=== PATIENT | male | born 1935 | race Caucasian/White ===

== ENCOUNTER 2016-11-16 06:48 | Day surgery (SDC) | payer OTHER ==
[2016-11-16] VITALS (9 sets, daily range): BP systolic 119–180; BP diastolic 46–83; PULSE 60–67; TEMP 36.1–36.6; O2SAT 97–99; Ht 175.3 cm; Wt 101.2 kg
[~2016-11-16] VITALS: Ht 175.3 cm; Wt 101.2 kg
--- NOTE | 2016-11-16 05:57 | History and Physical ---
History & Physical Date of Service Nov 16, 2016. History & Physical d the pleasure of seeing Mr. Weston in the office for consultation today regarding his right lateral lower leg wounds in regards to his peripheral arterial disease. The patient states that he has had longstanding peripheral arterial disease and underwent a right leg bypass performed back in 2009 or so. The patient states that approximately a month or so ago, he noticed that his right ankle brace appeared to be rubbing at his skin. He states that when he got a better look at it he realized that there was an ulceration there and he sought medical attention for it. He admits some chronic pain and numbness due to diabetic neuropathy in his bilateral feet and ankles, may also have some chronic edema of his lower legs, worse on the right than the left since his surgery back in 2010. He states that he has a history of having had stents placed in his right leg prior to him having to undergo bypass in that leg. He states that he is going to the wound care center locally and that they have ordered some x-rays of his ankle to look for bone infection and they did start him on an antibiotic at his last visit there. He states that they have not informed him of whether the wound appears to be healing or not. He has not had bypass evaluated for 5-6 years. He states that he is unable to walk long distances and so does not claudicate, but his inability to walk it is related shortness of breath as well as his chronic foot discomfort and numbness. He does use a cane for ambulation. ,He also reports that he has a history of congestive heart failure and has some shortness of breath as well as swelling in his lower extremity, more so on the right than on the left. 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 The patient reports also, he has been having some rest pain symptoms and pain waking him up in the middle of night, improves with him dangling his foot pad aside of the bed. He also takes Tylenol and oxycodone for the pain. He denies other complaints at this time including headaches, fevers, chills, dizziness, chest pain, shortness of breath, abdominal pain, nausea, vomiting, diarrhea, constipation, dysuria, hematuria, rest pain, claudication or other complaints. He did not have any recent ultrasounds of his arterial supply. ALLERGIES: No known allergies. HOME MEDICATIONS: Reconciled on the chart and include the following: Albuterol , Amaryl, aspirin, clindamycin, felodipine, furosemide, isosorbide mononitrate, metoprolol tartrate, Nitrostat, NovoLog Flex Pen, oxycodone and simvastatin, ___ _, SoloSTAR and Trilipix. PAST MEDICAL HISTORY: Positive for type 2 diabetes mellitus on insulin, peripheral arterial disease status post right leg femoral to distal bypass, hypertension, heart disease, kidney disease, stasis dermatitis, congestive heart failure, peripheral neuropathy, hyperlipidemia. PAST SURGICAL HISTORY: Positive for fem distal bypass, right leg arterial stent insertion, pacemaker insertion toe amputation of the left foot and coronary artery bypass graft x2 back in 1989, tendon and removal from the right ankle and finger fusion. FAMILY HISTORY: Positive for cancer in a brother and stroke in sister. SOCIAL HISTORY: Positive for a past history of tobacco use. The patient stopped smoking at age 52. He denies alcohol or drug use. REVIEW OF SYSTEMS: Negative for fatigue, fevers, sweats, weight loss, abnormal moles, vision changes or photophobia, ear pain, sinus problems or sore throat, cough, shortness of breath, hemoptysis or wheezing, chest pain, palpitations or syncope, abdominal pain, no nausea, vomiting, diarrhea, constipation, dysuria, hematuria, muscle weakness, headaches, dizziness, or seizures. PHYSICAL EXAMINATION: Vital signs are as follows: Blood pressure 162/66 in the right arm, 150/60 in the left, heart rate is 63 and oxygen 98% on room air. The patient is 175.26 cm tall and weighs 105.8 kilograms. Constitutional: In general, the patient is a chronically ill-appearing elderly male in no acute distress. He ambulates with a cane. His head is normocephalic and atraumatic. Her eyes are EOMI. HEENT exam demonstrates no hearing loss, rhinorrhea or pharyngeal erythema. Neck is supple, nontender with midline trachea without masses or crepitus. Lung exam demonstrates no dyspnea. They are decreased throughout, but clear bilaterally. Cardiovascular exam demonstrates a nondisplaced apical impulse with a regular rate and rhythm with a faint 2/6 systolic ejection murmur. Peripheral pulses are full and equal in all extremities unless otherwise noted, specifically they are normal in his carotid , brachial and radial pulses, his bilateral femoral pulses are +3. His right foot distal pulses are nonpalpable. His left DP is +2. PT is +1. He has brisk capillary refill on the left. His right foot also demonstrates brisk capillary refill and is warm. The patient demonstrates no bruit in his carotid or abdominal area. Abdomen is soft, nontender with normoactive bowel sounds in all 4 quadrants without guarding or rebound. There is no flank or CVA tenderness. Musculoskeletal exam demonstrates normal tone and strength for age. Bilateral upper extremities demonstrate no cyanosis, edema, clubbing, varicosities or ulcers. The patient's bilateral lower extremities demonstrate edema. Right leg has +3, left is +1. He has no skin changes consistent with chronic venous insufficiency. He has a long surgical scar in his right medial leg consistent with previous bypass or vein harvesting. He has a large deep ulceration on the lateral aspect of his right ankle just above his malleolus. This area is tender to palpation. There is mild erythema surrounding that as well as the rest of his foot, his foot does appear somewhat warm. There does not appear to be any drainage or foul odor. There is no necrosis of the wound. ASSESSMENT AND PLAN: Peripheral arterial disease with ulceration of the right lower ankle. History of fem distal bypass. Plan : Patient is admitted for arteriography and possible intervention. I have discussed the risks options and benefits of the procedure with the patient. The patient understands the risks options and benefits and agrees to the procedure.
[~2016-11-16 06:48] MED LIST: CEFAZOLIN 2000 MG/60 ML D5W IV SCH; PATIENT'S ALLERGY INFO NEEDS ENTERED SCH; PATIENT'S HEIGHT AND/OR WEIGHT NEEDED SCH
--- NOTE | 2016-11-16 07:27 | Procedure Note ---
Pre-Mod Sedation Assessment General Date of Moderate Sedation: Nov 16, 2016. Pre-Sedation Airway Assessment Mallampati Classification: Class I ASA Classification: Class II Notes The planned sedation has been discussed with the patient and consent obtained. I have identified the patient, determined the appropriateness of sedation and have assessed the patient immediately prior to the procedure. All medicine(s) and interventions are by my order.
--- NOTE | 2016-11-16 07:27 | History & Physical Bridge Note ---
H&P Re-Evaluation Bridge Note: I have examined the patient, reviewed the History & Physical and in the interval since the performance of the History & Physical I have noted the following changes of clinical significance: No changes noted
[2016-11-16] MEDS ORDERED: SODIUM CHLORIDE 0.9% 1000ML 1,000 ML IV SCH (07:30)
[2016-11-16] MEDS ORDERED: SODIUM BICARBONATE 8.4% INJ 100 MEQ in STERILE WATER 1000 ML 1,000 ML IV SCH (07:30)
[2016-11-16] MEDS ORDERED: SIMV20TA2 PO (07:31)
[2016-11-16] MEDS ORDERED: FRS/40 PO (07:31)
[2016-11-16] MEDS ORDERED: ISOS30TA51 PO (07:31)
[2016-11-16] MEDS ORDERED: CHOL135C6 PO (07:31)
[2016-11-16] MEDS ORDERED: NTRGSL/4 SL (07:31)
[2016-11-16] MEDS ORDERED: albuterol sulf INH (07:31)
[2016-11-16] MEDS ORDERED: ASPI81TA28 PO (07:31)
[2016-11-16] MEDS ORDERED: INSU1.2I SQ (07:31)
[2016-11-16] MEDS ORDERED: FELO5TAB PO (07:31)
[2016-11-16] MEDS ORDERED: METO100T14 PO (07:31)
[2016-11-16] MEDS ORDERED: GLIM1TAB2 PO (07:31)
[2016-11-16] MEDS ORDERED: ACET-1311 PO (08:08)
[2016-11-16] MEDS ORDERED: OXYC1CAP5 PO (08:08)
[2016-11-16] MEDS ORDERED: [UNRECOGNIZED DRUG - CODE] PO (08:27)
[2016-11-16] MEDS ORDERED: FENO160T PO (08:31)
[2016-11-16] MEDS ORDERED: FENTANYL CITRATE INJ 50 MCG/1 ML 2 ML VIAL ONE (08:59)
[2016-11-16] MEDS ORDERED: MIDAZOLAM HCL 1 MG/ML 2ML VIAL ONE (09:00)
[2016-11-16] MEDS ORDERED: HydrALAZINE HCL 20 MG/ML VIAL ONE ×2 (09:40→10:02)
[2016-11-16] MEDS ORDERED: HydrALAZINE HCL 20 MG/ML VIAL IV. ONE ×4 (09:42→10:51)
[2016-11-16] MEDS ORDERED: LIDOCAINE HCL 1% 20 ML VIAL SQ ONE (09:59)
[2016-11-16] MEDS ORDERED: IODIXANOL (VISIPAQUE) 270 MG/ML 50ML FLUSH ONE (09:59)
[2016-11-16] MEDS ORDERED: FENTANYL CITRATE INJ 50 MCG/1 ML 2 ML VIAL IV ONE ×2 (10:01→10:24)
--- NOTE | 2016-11-16 10:04 | [facility] Post Operative Brief Note ---
Immediate Operative Summary Operative Date Nov 16, 2016. 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 Post-Operative Diagnosis same Procedure(s) Performed Right Lower Extremity Arteriogram, Surgeon Dr. Wilson Datapower Consultant Surgeon(s) Dr. Wilson Estimated Blood Loss 5 Findings sfao, pop occl and infrapopliteal occlusive disease Specimens None Anesthesia Local Complication(s) None Disposition
--- NOTE | 2016-11-16 10:06 | Discharge Instructions ---
Discharge Instructions Date of Service Nov 16, 2016. Visit Reason for Visit: Right Superficial Femoral Artery Occulsion Discharge Discharge Diagnosis / Problem: right lower extermity atherosclerosis with non healing ulcer Discharge Goals Goal(s): Diagnostic testing Activity Recommendations Activity Limitations: per Instructions/Follow-up section Anesthesia . Post Anesthesia Instructions: If you have had General Anesthesia or IV Sedation: * Do not drive today. * Resume driving when surgeon permits. * Do not make important decisions or sign legal documents today. * Call surgeon for: 1. Temperature elevations greater than 101 degrees F. 2. Uncontrollable pain. 3. Excessive bleeding. 4. Persistent nausea and vomiting. 5. Medication intolerance (nausea, vomiting or rash). * For nausea and vomiting use only clear liquids such as: tea, soda, bouillon until nausea subsides, then gradually increase diet as tolerated. * If you have any concerns or questions, call your surgeon's office. If physician is unavailable and it is an emergency, call 911 or go to the nearest emergency room. . Instructions / Follow-Up Instructions / Follow-Up Call [phone] to schedule a follow up appointment if one not already scheduled. SPECIAL CARE INSTRUCTIONS: Medications: * Continue to take your medications as directed. If you have been given a prescription for Plavix, please fill it immediately and take as directed. Incision Care: * Your puncture site may have some bruising and minor swelling for about one week. * You will have a small dressing covering your puncture site. You may remove the dressing after 24 hours and shower. You may let the warm soapy water run over it, but be sure to dry the puncture site well and keep it dry. * DO NOT IMMERSE THE INCISION IN A TUB/POOL/etc. UNTIL HEALED. * Puncture sites should be kept covered with a band-aid until it begins to heal. Restrictions: * Depending on whether you leg or arm was punctured to access the arteries, you will be required to lay flat, hold your arm still, or both, for about 4 hours after the procedure to prevent bleeding. * Limit your activity for the first 48 hours. You may walk and go up and down steps. Avoid excessive bending or movement at the puncture site. Possible Complications: * Excessive Swelling - after blood flow is improved you may notice increased swelling in the lower legs. This is a normal response. This usually depends on the amount of blockages in the leg, how long they have been there prior to your procedure and how much blood flow was restored. Elevating your legs will help to improve this. Please notify our office ([phone] ) if the swelling does not go away after lying in bed overnight. * Infection/Drainage/Bleeding - Drainage or bleeding from the puncture site should be minimal. If you have excessive bleeding or drainage, call our office ([phone]) right away. * Pain - You may experience some mild pain or soreness at your puncture site. If your pain does not improve, please contact our office ([phone]). Call your doctor and seek emergent treatment if you develop: * Temperature above 101 degrees * Any fever or chills * Any redness or purulent drainage from the puncture site * Any new dusky/blue colored toes or feet with coolness or sharp or aching pain. SKIN IRRITATION: * You may experience some redness and/or swelling in the area where radiation was administered. If any skin irritation occurs, please contact your family physician. FOLLOW UP VISIT: Keep any scheduled doctor appointments. Diet Recommendations Recommended Home Diet: resume previous diet Procedures Procedures Performed: Right Lower Extremity Arteriogram, Pending Studies Studies pending at discharge: no Medical Emergencies . Who to Call and When: Medical Emergencies: If at any time you feel your situation is an emergency, please call 911 immediately. . Non-Emergent Contact Non-Emergency issues call your: Surgeon . . "Provider Documentation" section prepared by Rashaad Wilson. .
--- NOTE | 2016-11-16 10:40 | [facility] Operative Report ---
Operative Report Operative Date Nov 16, 2016. 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 Post-Operative Diagnosis same Procedure(s) Performed Right Lower Extremity Arteriogram, Surgeon Dr. Wilosn Patcher Helper Surgeon(s) Dr. Wilson Estimated Blood Loss 5 Findings patent BAYLEE, IIA, EIA. Patient did have a occlusion of his superficial femoral artery with reconstitution of the popliteal artery below the knee. There is significant collaterals around the knee with reconstitution of the anterior tibial and posterior tibial overlaid onto the foot. Specimens None Anesthesia Local Complication(s) None Disposition Recovery Room / PACU Indications Patient has a nonhealing wound on the lateral side of the right lower extremity around the ankle as well as rest pain in the right lower extremity. Description of Procedure Patient was brought to the operating room and placed on the operating table in the supine position. Patient did have some trouble laying flat and required 3 pillows and able to the LAD on the table. Both groins were prepped and draped in a sterile fashion. Ultrasound guided access of the right common femoral was completed using an access needle then a 5 Georgian sheath was advanced over an angled glide wire. An angiogram was then completed of the access site showing a patent common femoral artery and external iliac artery angiogram was then completed of the leg also showing a patent profunda occluded superficial femoral artery distally with numerous collaterals down to reconstitution of the anterior tibial as well as posterior tibial below the knee. The anterior to posterior tibial have flow to the foot. Attention was then turned to the pelvis where an additional angiogram was completed showing a patent common iliac artery and internal iliac artery as well as external iliac artery all the way back to the to the aortic bifurcation. A sterile closure device was attempted however this deployment was unsuccessful and the wire as well as sheath were removed. Pressure was held for 30 minutes in the operating room. Patient was then kept flat and taken back to the recovery room in good stable condition. Dr. Wilson was present for the entirety of the case. I, Dr. Wilson was present and scrubbed for the entire procedure. I attest to the content of the Intraoperative Record and any orders documented therein. Any exceptions are noted below.
[2016-11-16] MEDS ORDERED: OXYCODONE/ACETAMINOPHEN 5-325 TAB PO STA (11:53)
--- NOTE | 2016-11-16 12:55 | DIAGNOSTIC IMAGING REPORT ---
CT SCAN OF THE ABDOMEN AND PELVIS WITHOUT CONTRAST CLINICAL HISTORY: Abdominal pain status post angiogram. History of right SFA occlusion COMPARISON STUDY: Angiographic study dated 11/16/2016 TECHNIQUE: CT scan of the abdomen and pelvis was performed from the lung bases to the proximal femurs. Images are reviewed in the axial, sagittal, and coronal planes. IV contrast was not administered for this examination. A dose lowering technique was utilized adhering to the principles of ALARA. CT DOSE: 1381.41 mGycm FINDINGS: Lower chest: There are extensive coronary artery calcifications. There are mild dependent atelectatic changes. The heart is mildly enlarged. Liver: The unenhanced liver is normal in size, contour, and attenuation. There is no intrahepatic biliary ductal dilatation. Gallbladder: Cholelithiasis. Spleen: The spleen is mildly enlarged measuring 14 cm in AP diameter. Pancreas: Unremarkable. Adrenal glands: Unremarkable. Kidneys: No renal masses are visualized. There are moderately extensive renal vascular calcifications. There is contrast excretion secondary to a prior angiogram. Bowel: There are no transition zones indicate bowel obstruction. The appendix appears normal. There is no acute diverticulitis. Peritoneum: There is no intraperitoneal free air or abdominal ascites. Vasculature: There are extensive atherosclerotic calcifications. There is ectasia of the infrarenal abdominal aorta which measures 3 cm in maximal diameter. Adenopathy: None. Pelvic viscera: The bladder, and pelvic viscera are unremarkable. Skeletal structures: There is infiltration of the fat surrounding the right inguinal vessels, consistent with history of recent catheterization. IMPRESSION: 1. No evidence of bowel obstruction. No evidence of free air 2. Normal appendix 3. Mild fecal retention. No evidence of acute diverticulitis 4. Cholelithiasis 5. Mild infiltration of the fat surrounding the right inguinal vessels consistent with the history of recent catheterization Electronically signed by: Crispin Lewis M.D. 11/16/2016 12:54 PM Dictated Date/Time: 11/16/2016 12:47 PM
== END 2016-11-16 15:00 | disposition home or self-care (01) ==
LOC: EDBD → C.ACU 06:48
PROVIDERS: ATTEND Surgery Vascular Surgery
DX: I83.013 Varicose veins of right lower extremity with ulcer of ankle (principal); L97.311 Non-pressure chronic ulcer of right ankle limited to breakdown of skin; I77.1 Stricture of artery; E11.51 Type 2 diabetes mellitus with diabetic peripheral angiopathy without gangrene; E11.42 Type 2 diabetes mellitus with diabetic polyneuropathy; E78.5 Hyperlipidemia, unspecified; I11.0 Hypertensive heart disease with heart failure; I50.9 Heart failure, unspecified; Z95.0 Presence of cardiac pacemaker; Z95.1 Presence of aortocoronary bypass graft; Z79.82 Long term (current) use of aspirin; Z79.4 Long term (current) use of insulin; Z79.899 Other long term (current) drug therapy